=== PATIENT | female | born 1955 | race Caucasian/White ===

== ENCOUNTER 2017-02-16 09:41 | Emergency (ER) | payer SELFPAY ==
--- NOTE | 2017-02-16 10:18 | RAD ---
LEFT HUMERUS TWO VIEWS: History: 62-year-old female with left arm pain. Comparison: 03-23-13 FINDINGS: There is a healed fracture with minimal residual deformity involving the humeral neck. No evidence fo r dislocation or acute fracture. IMPRESSION: No acute fracture or dislocation. Healed humeral neck fracture with some foreshortening and deformity . POS: [facility]
== END 2017-02-16 11:15 | disposition home or self-care (01) ==
LOC: ERS 09:41
DX: S50.12XA Contusion of left forearm, initial encounter (principal); F17.210 Nicotine dependence, cigarettes, uncomplicated; W18.30XA Fall on same level, unspecified, initial encounter

== ENCOUNTER 2020-07-06 12:50 | Emergency (ER) | payer SELFPAY | END 2020-07-06 15:30 | disposition home or self-care (01) | LOC: ERS 12:50 | DX: M79.604 Pain in right leg (principal); I10 Essential (primary) hypertension; F17.210 Nicotine dependence, cigarettes, uncomplicated ==